=== PATIENT | male | born 1985 | race Caucasian/White ===

== ENCOUNTER 2017-08-05 20:34 | Emergency (ER) | payer OTHER ==
[~2017-08-05] VITALS: Ht 190.5 cm; Wt 86.2 kg
[2017-08-05 20:51] VITALS: BP 126/75
--- NOTE | 2017-08-05 21:42 | NUR ---
PT TAKEN TO OF2
--- NOTE | 2017-08-05 22:14 | NUR ---
PT MOVED TO ER BED 1
--- NOTE | 2017-08-05 22:20 | NUR ---
32Y/M PT. PRESENTS TO ED WITH C/O URINARY BURNING X 4 DAYS. NO N/V/D, NO FEVER. AAO X4, AMBULATORY WITH STEADY GAIT. RESPIRATIONS ROOM AIR, EVEN AND UNLABORED. C/O PAIN 01/27, VSS, ER MD MADE AWARE OF PT. STATUS.
--- NOTE | 2017-08-05 22:20 | NUR ---
Note undone in EDM - 08/05/17 at 2227 by [email or web address] PATIENT PRESENTS TO ED WITH BURNING ON URINATIO . PT STATES, "IT'S BEEN BURNING FOR ABOUT 4 DAYS. DENIES N/V/D; SKIN IS PINK/WARM/DRY; AAOX4 WITH EVEN AND STEADY GAIT; LUNGS CLEAR BL; HR EVEN AND REGULAR; PT DENIES ANY FEVER, CP, SOB, OR COUGH AT THIS TIME; PATIENT STATES PAIN OF 9/10 AT THIS TIME; VSS; PATIENT POSITIONED FOR COMFORT; HOB ELEVATED; BEDRAILS UP X2; BED DOWN. ER MADE AWARE OF PT STATUS.
[2017-08-05] MEDS ORDERED: cefTRIAXone 250 MG in LIDOCAINE 1% ***ER ONLY *** 0.9 ML IM ONE (22:35)
[2017-08-05] MEDS ORDERED: PHENAZOPYRIDINE 100 MG TAB PO ONE (22:35)
[2017-08-05] MEDS ORDERED: AZITHROMYCIN 250 MG TAB PO ONE (22:35)
[2017-08-05 23:24] VITALS: BP 121/79
--- NOTE | 2017-08-05 23:24 | NUR ---
Patient discharged with v/s stable. Written and verbal after care instructions given and explained. Patient alert, oriented and verbalized understanding of instructions. Ambulatory with steady gait. All questions addressed prior to discharge. ID band removed. Patient advised to follow up with PMD. Rx of PHENAZOPYRIDINE given. Patient educated on indication of medication including possible reaction and side effects. Opportunity to ask questions provided and answered.
[2017-08-08 07:26] LABS: CHLAMYDIA TRACHOMATIS AMP DNA NEGATIVE (NEGATIVE)
== END 2017-08-05 23:24 | disposition home or self-care (01) ==
LOC: MED 20:34
DX: R30.0 Dysuria (principal)
CPT/HCPCS: 36415; 81002; 96372; 99283; J0696; J2001; 87491

== ENCOUNTER 2020-05-01 12:45 | Emergency (ER) | payer OTHER ==
[~2020-05-01] VITALS: Ht 190.5 cm; Wt 90.7 kg
[2020-05-01 12:56] VITALS: BP 125/69
--- NOTE | 2020-05-01 13:46 | NUR ---
PT IS TAKING TO BED 11.
[2020-05-01 13:50] VITALS: BP 118/61
--- NOTE | 2020-05-01 13:50 | NUR ---
Pt c/o pressure burning pain upon voiding, frequency, urgency of urination, and clear penile discharge for 3 days. Reports have a new sexual partner for one week.
[2020-05-01] MEDS ORDERED: AZITHROMYCIN 250 MG TAB PO ONE (14:10)
[2020-05-01] MEDS ORDERED: cefTRIAXone 250 MG in LIDOCAINE MPF 1% 0.9 ML IM ONE (14:10)
[2020-05-01] MEDS ORDERED: cefTRIAXone 250 MG VIAL ONE (14:19)
[2020-05-01] MEDS ORDERED: LIDOCAINE MPF 1% 5 ML ONE (14:19)
--- NOTE | 2020-05-01 14:33 | NUR ---
PATIENT ELOPED FROM FACILITY. DISCHARGE INSTRUCTIONS AND PRESCRIPTION NOT GIVEN TO PATIENT. DR. FORD NOTIFIED.
[2020-05-01 15:09] LABS: APPEARANCE,URINE CLEAR (CLEAR); BILIRUBIN,URINE NEGATIVE (NEGATIVE); BLOOD, URINE NEGATIVE (NEGATIVE); COLOR,URINE YELLOW (YELLOW); LEUKOCYTE ESTERASE ,URINE NEGATIVE (NEGATIVE); NITRITE, URINE NEGATIVE (NEGATIVE); PH,URINE 7.5 (5.0-9.0); UGLUCOSE NEGATIVE (NEGATIVE)
[2020-05-04 06:07] LABS: CHLAMYDIA TRACHOMATIS AMP DNA Negative (Negative)
== END 2020-05-01 14:33 | disposition home or self-care (01) ==
LOC: MED 12:45
DX: A64 Unspecified sexually transmitted disease (principal); N39.0 Urinary tract infection, site not specified
CPT/HCPCS: 36415; 81003; 96372; 99283; J0696; J2001

== ENCOUNTER 2020-10-28 04:20 | Emergency (ER) | payer OTHER ==
[~2020-10-28] VITALS: Ht 190.5 cm; Wt 91.6 kg
[2020-10-28 04:26] VITALS: BP 119/70
--- NOTE | 2020-10-28 04:26 | NUR ---
TO BED AMBULATORY
[2020-10-28] MEDS ORDERED: DOXY100C9 PO (04:44)
[2020-10-28] MEDS ORDERED: PYR100 PO (04:44)
[2020-10-28] MEDS ORDERED: PHENAZOPYRIDINE 100 MG TAB PO ONE (04:45)
[2020-10-28] MEDS ORDERED: cefTRIAXone 500 MG in LIDOCAINE MPF 1% 1 ML IM ONE (04:45)
--- NOTE | 2020-10-28 04:47 | NUR ---
35 Y MALE PRESENTS TO THE ED WITH BURNING PAIN WITH URINATION AND WITH CLEAR DISCHARGE. PAIN IS 6/10 WHEN URINATING PAST MEDICAL HX: STD NKA
[2020-10-28] MEDS ORDERED: cefTRIAXone 500 MG VIAL ONE (04:52)
[2020-10-28] MEDS ORDERED: LIDOCAINE MPF 1% 5 ML ONE (04:53)
[2020-10-28 05:12] VITALS: BP 119/70
--- NOTE | 2020-10-28 05:14 | NUR ---
Patient discharged with v/s stable. Written and verbal after care instructions given and explained. Patient alert, oriented and verbalized understanding of instructions. Ambulatory with steady gait. All questions addressed prior to discharge. ID band removed. Patient advised to follow up with PMD. Rx of DOXYCYCLINE HYCLATE AND PHENAZOPYRIDINE given. Patient educated on indication of medication including possible reaction and side effects. Opportunity to ask questions provided and answered.
== END 2020-10-28 05:14 | disposition home or self-care (01) ==
LOC: MED 04:20
DX: A63.8 Other specified predominantly sexually transmitted diseases (principal); R30.0 Dysuria; Z79.899 Other long term (current) drug therapy
CPT/HCPCS: 36415; 81002; 87491; 96372; 99283; J0696; J2001